=== PATIENT | female | born 1950 | race Caucasian/White ===

== ENCOUNTER 2016-12-22 02:30 | Inpatient (IN) ==
[2016-12-22] MEDS ORDERED: ZOFRAN IV ONE ×2 (02:41→03:49)
[2016-12-22] MEDS: LR 1,000 ML IV PRN ×2 (03:00→09:15)
[2016-12-22 03:05] LABS: MANUAL DIFF NEEDED? NO
[2016-12-22 03:08] LABS: BASO% 0.1 % (0.0-0.8); EOS# 0.03 X1000 (0.0-0.7); EOS% 0.2 % (0.0-10.0); HEMATOCRIT 36.2 % (37.0-47.0); IMM GRAN# 0.05 X1000 (0.0-0.04); IMM GRAN% 0.4 % (0.0-0.5); LYMPH% 16.5 % (20.5-51.1); MCH 28.4 PG (27-31); MCHC 35.9 g/dL (33-37); MONO# 0.54 X1000 (0.11-0.59); MPV 9.3 FL (7.4-10.4); NEUT% 78.8 % (42.2-75.2); PLT 449 X1000 (130-400); RBC 4.58 XMIL (4.2-5.4)
[2016-12-22] MEDS ORDERED: PHENERGAN IV ONE ×2 (03:11→05:03)
[2016-12-22] MEDS ORDERED: SODIUM CHLORIDE 0.9% INJ ONE ×2 (03:11→05:03)
[2016-12-22 03:47] LABS: CK PROFILE 50 U/L (24-173); LIPASE 22 U/L (13-60)
[2016-12-22] MEDS ORDERED: LABETALOL IV ONE (03:48)
[2016-12-22 04:07] LABS: AGAP 19; ALBUMIN 4.6 g/dL (3.5-5.0); ALKALINE PHOSPHATASE 99 U/L (32-104); BUN 10 mg/dL (8-22); CALCIUM 9.9 mg/dL (8.8-10.2); CHLORIDE 90 mmol/L (98-107); COSMO 258; GOT 15 U/L (10-30); GPT 9 U/L (10-36); POTASSIUM 3.4 mmol/L (3.5-5.1); SODIUM 128 mmol/L (136-145); TCO2 20 mmol/L (25-35); TOTAL PROTEIN 8.2 g/dL (6.3-8.3)
[2016-12-22 04:23] LABS: URINE CULTURE PL NEEDED? NO
[2016-12-22 04:46] LABS: BILIRUBIN URINE NEGATIVE (NEGATIVE); BLOOD URINE TRACE (NEGATIVE); CLARITY CLEAR (CLEAR); COLOR YELLOW; GLUCOSE URINE NEGATIVE (NEGATIVE); LEUKOCYTES URINE NEGATIVE (NEGATIVE); NITRITE URINE NEGATIVE (NEGATIVE); PH URINE 6.5; PROTEIN URINE 1+(30 mg/dL) mg/dL (NEGATIVE); SP GRAVITY URINE 1.015; URINE EPITHELIAL CELLS <10 /HPF (<10); URINE RBC <10 /HPF (<10); URINE WBC <10 /HPF (<10); UROBILINOGEN URINE NORMAL
[2016-12-22 04:47] LABS: URINE SOURCE CATH
[2016-12-22] MEDS ORDERED: ATIVAN IV ONE (05:03)
--- NOTE | 2016-12-22 06:01 | EKG Report ---
Test Performed on : 12/22/2016 03:15:33 AM Test Reason : pain Blood Pressure : / mmHG Vent. Rate : 085 BPM Atrial Rate : 085 BPM P-R Int : 112 ms QRS Dur : 070 ms QT Int : 348 ms P-R-T Axes : 044 053 036 degrees QTc Int : 414 ms Normal sinus rhythm. with sinus arrhythmia. Nonspecific ST abnormality Abnormal ECG When compared with ECG of 07-FEB-2016 17:43, No significant change was found Unconfirmed Result
--- NOTE | 2016-12-22 06:39 | Diag Imaging Result Doc PS360 ---
EXAM: HEAD W/O CONTRAST HISTORY: h/a vomiting TECHNIQUE: Dose reduction protocol COMPARISON: 01/17/2016 FINDINGS: No parenchymal hemorrhage. No epidural or subdural hematoma. No subarachnoid hemorrhage. No mass identified on this noncontrasted exam. No hydrocephalus. Mild microvascular ischemic changes. No sinus opacification. IMPRESSION: No hemorrhage. Mild microvascular ischemic changes. Electronically signed by Kane Campa 12/22/2016 6:37 AM
--- NOTE | 2016-12-22 07:29 | Diag Imaging Result Doc PS360 ---
EXAM: ABDOMEN FLAT/UPRIGHT HISTORY: vomiting TECHNIQUE: Portable upright and supine, three views COMPARISON: None. FINDINGS: No free air beneath the diaphragm. Mild scoliosis with mild degenerative changes. Cement is found within the lower lumbar vertebra. Prior to placement of the right hip. Old injury to the right pelvis. No bowel obstruction. No organomegaly. IMPRESSION: No acute abnormality. Electronically signed by Kane Campa 12/22/2016 7:27 AM
[2016-12-22] MEDS ORDERED: APRESOLINE IV PRN (11:20)
--- NOTE | 2016-12-22 11:51 | HISTORY AND PHYSICAL ---
PRIMARY CARE PHYSICIAN: Dr. Wright. CHIEF COMPLAINT: Nausea, vomiting and headache for the past 2 days that had progressively worsened. HISTORY OF PRESENTING ILLNESS: This is a 66-year-old female who presents to [facility] ER with complaints of nausea, vomiting and a headache for 2 days. Workup in the ER was essentially benign except she did have an elevation in her blood pressure at 186/98. She had a sodium level that was 128, and urine was clear. We checked a head CT that showed no acute abnormality. We did an abdomen x-ray that showed no acute abnormality. While in the emergency room she was given labetalol 20 mg IV x 1. She was given Ativan 1 mg IV x 1. She was given Zofran 4 mg IV on 2 different doses and Phenergan 25 mg IV x 2 separate doses. She still states that she has a headache and feels nauseated and has noted in her emesis basin at the bedside to have yellow bile in it, and that she is continuing to vomit so she is being admitted for further evaluation and treatment. PAST MEDICAL HISTORY: 1. Hypertension. 2. Sleep apnea. 3. Irritable bowel syndrome. 4. Chronic back pain. 5. Anxiety. 6. Depression. PAST SURGICAL HISTORY: Cholecystectomy and hysterectomy. FAMILY HISTORY: Noncontributory. SOCIAL HISTORY: She currently lives alone. Smokes 2-3 cigarettes a day and has done that for the past 3 years but has been an on and off smoker most of her life, she states. Denies any alcohol or illicit drug use. ALLERGIES: Penicillin. HOME MEDICATIONS: We will verify her dose of Xanax and hydrocodone. We will continue her Norvasc 10 mg p.o. daily and lisinopril 10 mg p.o. daily. LABORATORY DATA: Showed a white blood cell count of 13.36, hemoglobin of 13, hematocrit 36.2, platelets 449,000. Sodium 128, potassium 3.4, chloride 90, CO2 20, BUN of 10, creatinine of 0.5, glucose of 135, cardiac enzymes x 2 sets were negative. Lipase of 22. Urinalysis was negative. CT of the head showed no acute abnormality. No hemorrhage. Abdomen x-ray showed no acute abnormality. REVIEW OF SYSTEMS: She denied any fever, chills, blurred vision, dizziness. She is positive for a headache. She denied any chest pain, coughing, shortness of breath. She is positive for nausea, vomiting, some abdominal discomfort but not pain. Denied any diarrhea or burning or hurting with urination. PHYSICAL EXAMINATION: She had a temperature of 98.6 degrees, pulse 87, respirations 16, blood pressure 186/98. GENERAL: This is a 66-year-old female who is lying in the bed, and answers questions appropriately. HEENT: Normocephalic and atraumatic. Pupils are equal, round, reactive to light. Extraocular movements are intact. Oropharynx and nares are clear. NECK: Supple. LUNGS: Clear to auscultation bilaterally with equal lung expansion and chest wall movement. HEART: With regular rate and rhythm. No murmurs, rubs, or gallops. ABDOMEN: Soft, nontender, nondistended. Bowel sounds are present x 4 quadrants. EXTREMITIES: No clubbing, cyanosis, or edema. NEUROLOGICAL: The cranial nerves 2-12 are grossly intact. ASSESSMENT: 1. Nausea and vomiting. 2. Headache. 3. Hyponatremia. 4. Hypertension. PLAN: She is admitted to the medical unit at [place], placed on telemetry on a clear liquid diet. We will continue her home medication of Norvasc and lisinopril. We will also give her hydralazine 10 mg IV every 6 p.r.n. for a systolic blood pressure greater than 190, diastolic greater than 100. Give her Zofran 4 mg IV q.4 hours p.r.n., Protonix 40 mg IV q.24, and place on normal saline at 100 mL an hour and recheck a CBC and a BMP in the morning. Pt is a full code. Dictated by TARIK Samaniego for William Johnson MD cc: TARIK Samaniego MD Amit V. Vora, MD [facility]OSPITALJose J
[2016-12-22] MEDS: SODIUM CHLORIDE 0.9% INJ SCH (12:10)
[2016-12-22] MEDS: PROTONIX IV SCH (12:10)
[2016-12-22] MEDS: NS 1,000 ML IV SCH ×2 (12:10→22:21)
[2016-12-22] MEDS: ZOFRAN IV PRN ×2 (12:11→16:58)
[2016-12-22] MEDS: PRINIVIL PO SCH ×2 (12:11→16:58)
[2016-12-22] MEDS: NORVASC PO SCH ×2 (12:11→16:58)
[2016-12-22] MEDS: NORCO-10 PO SCH ×2 (16:58→20:46)
[2016-12-22] MEDS: XANAX PO SCH ×2 (16:58→20:47)
[2016-12-22] MEDS ORDERED: NORCO-10 PO SCH (21:00)
[2016-12-22] MEDS ORDERED: XANAX PO SCH (21:00)
[2016-12-23 06:13] LABS: MANUAL DIFF NEEDED? NO
[2016-12-23 06:18] LABS: BASO% 0.2 % (0.0-0.8); EOS% 0.8 % (0.0-10.0); HEMATOCRIT 38.8 % (37.0-47.0); HEMOGLOBIN 13.6 g/dL (12.0-16.0); IMM GRAN# 0.06 X1000 (0.0-0.04); IMM GRAN% 0.5 % (0.0-0.5); LYMPH% 23.4 % (20.5-51.1); MCH 27.7 PG (27-31); MCHC 35.1 g/dL (33-37); MONO# 1.35 X1000 (0.11-0.59); MONO% 10.2 % (1.7-9.3); MPV 9.6 FL (7.4-10.4); NEUT% 64.9 % (42.2-75.2); PLT 466 X1000 (130-400); RBC 4.91 XMIL (4.2-5.4)
[2016-12-23 06:48] LABS: AGAP 13; BUN 10 mg/dL (8-22); CALCIUM 9.2 mg/dL (8.8-10.2); CHLORIDE 95 mmol/L (98-107); COSMO 263; POTASSIUM 2.8 mmol/L (3.5-5.1); SODIUM 131 mmol/L (136-145); TCO2 23 mmol/L (25-35)
[2016-12-23] MEDS ORDERED: KLOR-CON PO ONE (07:02)
[2016-12-23] MEDS: NS 1,000 ML IV SCH (07:57)
--- NOTE | 2016-12-23 09:25 | PROGRESS NOTE ---
DATE: 12/23/2016 SUBJECTIVE: The patient states that she is still nauseated and still having some vomiting but overall thinks that she is feeling a little bit better. Denies any chest pain or palpitations. Denies blood in her emesis or her stool. OBJECTIVE: Vital Signs: Temperature 98, pulse 102-118, respiratory rate 16, BP 114/63 to 137/89 which is improved from last night's 87/58, saturation is 99% on room air. General: Patient is awake, alert. She is currently in no respiratory distress. Pleasant to talk with. Neck: Supple. Cardiovascular: Tachycardia. No murmurs. Chest: Clear and unlabored. Abdomen: Soft. Extremities: Moves all extremities. Neurologic: No changes. ASSESSMENT: 1. Nausea and vomiting, likely viral gastroenteritis. 2. Headache, seems to be improving. 3. Hyponatremia, improving. 4. Hypokalemia. We will replace. 5. Hypotension, has improved. Patient's blood pressures are starting to increase. This was likely secondary to pain medication last night. PLAN: We will continue patient's medications today. We will continue Zofran and IV fluids. Hopefully home in 1-2 days. cc: William Johnson MD
[2016-12-23] MEDS: NORVASC PO SCH (09:39)
[2016-12-23] MEDS: PRINIVIL PO SCH (09:39)
[2016-12-23] MEDS: XANAX PO SCH (09:39)
[2016-12-23] MEDS: NORCO-10 PO SCH (09:40)
[2016-12-23] MEDS: SODIUM CHLORIDE 0.9% INJ SCH (11:20)
[2016-12-23] MEDS: PROTONIX IV SCH (11:20)
[2016-12-23 15:56] VITALS: BP 105/59
--- NOTE | 2017-01-01 10:39 | DISCHARGE SUMMARY ---
ADMISSION DATE: 12/22/2016 DISCHARGE DATE: 12/23/2016 DIAGNOSES: 1. Nausea and vomiting, likely viral gastroenteritis. 2. Headache, improved. 3. Hyponatremia. 4. Hypokalemia. 5. Hypotension. DIAGNOSTICS: 1. Abdominal x-ray revealed no acute abnormality. 2. CT of the head revealed no hemorrhage. Mild microvascular ischemic changes. HOSPITAL COURSE: Ms. Peters presented to the emergency room complaining of nausea, vomiting, and headache for 2 days prior, that had progressively gotten worse. CT of the head was negative. She did have increased vomiting in the emergency room. Therefore, she was at admitted for hydration. This did resolve. She was hypotensive on admission, most likely secondary to dehydration. After the fluids were administered, this did resolve. We did replete potassium and sodium, although the patient left AMA before repeat labs could be obtained. Apparently the patient became angry, demanded to leave AMA. According to the chart, her IV was discontinued prior to her leaving. The patient walked out in a hospital gown with no belongings per documentation. Dictated by TARIK Box for William Johnson MD cc: TARIK Box MD
--- NOTE | 2017-01-14 06:22 | PROVIDER DOCUMENTATION ---
This chart was entered by Annia Bishop Scribe, acting as scribe for Everett Young MD. HPI-General Adult - General Source: patient <Greg Mendoza I - Last Filed: 12/22/16 07:27> - General Source: patient - History of Present Illness -Gen Adult Nature of Presenting Problems: Pt is a 66 year old female who came to the ED with a cc of N/V for two days. Location of Pain/Injury: reports: none Pain Radiation: reports: no radiation Quality of Pain: reports: none Onset/Duration: reports: 2 days ago Timing: reports: still present Associated Symptoms: reports: nausea, vomiting Similar Symptoms Previously?: No Recently seen or treated by another doctor?: No <Everett Young - Last Filed: 01/14/17 06:22> - General Chief Complaint: Nausea/Vomiting Stated Complaint: nausea vomiting and headache Time Seen by Provider: 12/22/16 02:37 Allergies/Adverse Reactions: Patient Allergies Allergy/AdvReac Type Severity Reaction Status Date / Time Penicillins Allergy Severe ANAPHYLAXIS Verified 12/22/16 02:35 Home Medications: Home Medication List Medication Instructions Recorded Confirmed Last Taken Type Amlodipine [Norvasc] 10 mg PO DAILY 01/28/16 12/22/16 01/28/16 08:59 History Lisinopril 10 mg PO DAILY 02/07/16 12/22/16 Unknown History Alprazolam [Alprazolam] 1 mg PO BID 12/22/16 12/22/16 Unknown History Hydrocodone/APAP 10 mg/325 mg 1 each PO BID 12/22/16 12/22/16 Unknown History [[place]-10] Review of Systems - Adult - REVIEW OF SYSTEMS - ADULT Constitutional: reports: no symptoms reported <RejiFitzGreg I - Last Filed: 12/22/16 07:27> - REVIEW OF SYSTEMS - ADULT Constitutional: denies: chills, fever Eyes: reports: no symptoms reported Ears, Nose, Mouth & Throat: reports: no symptoms reported Cardiovascular: reports: no symptoms reported Respiratory: reports: no symptoms reported Gastrointestinal: reports: nausea, vomiting. denies: abdominal pain, diarrhea, poor appetite Genitourinary: denies: discharge, urgency Musculoskeletal: reports: no symptoms reported Integumentary: reports: no symptoms reported Neurological: denies: seizure, tremors Psychiatric: reports: no symptoms reported Endocrine: reports: no symptoms reported Hematologic/Lymphatic: reports: no symptoms reported Allergic/Immunologic: reports: no symptoms reported All Other Systems: Reviewed and Negative <Everett Young - Last Filed: 01/14/17 06:22> Past History - Adult - PAST MEDICAL HISTORY-ADULT Review of Records: reports: Old Records Reviewed, Nursing Assessment Review, Medications Reviewed, Social history reviewed & non-contributory. <Greg Mendoza I - Last Filed: 12/22/16 07:27> - PAST MEDICAL HISTORY-ADULT Review of Records: reports: Nursing Assessment Review Major Childhood Illnesses: reports: denies history Cardiovascular: reports: HTN Respiratory: reports: sleep apnea Gastrointestinal: reports: denies history Obstetrical/Gynecological: reports: denies history Genitourinary: reports: denies history Musculoskeletal: reports: denies history Neurological: reports: headaches/migraines Psychiatric: reports: anxiety, depression, suicide attempt Endocrine/Immune: reports: denies history Other Conditions: reports: denies history - PRIOR SURGERIES/PROCEDURES Surgical/Procedure History: reports: cholecystectomy, hysterectomy - PRIOR HOSPITALIZATIONS Prior Hospitalizations: reports: psychiatric or rehab (once) - IMMUNIZATION STATUS Childhood Immunizations: UTD Flu Vaccine: UTD - FAMILY HISTORY Family History: reviewed, not pertinent <Everett Young - Last Filed: 01/14/17 06:22> Physical Exam-General - CONSTITUTIONAL General Appearance: appears well <Greg Mendoza I - Last Filed: 12/22/16 07:27> - PHYSICAL EXAM-ADULT Initial Vital Signs Reviewed: Yes - CONSTITUTIONAL General Appearance: alert, mild distress - EYES Eyes: PERRL/EOMI, pink conjunctivae - HEAD, EARS, NOSE, MOUTH & THROAT HENMT: normocephalic/atraumatic, moist mucous membranes - NECK Neck: non-tender, full range of motion - RESPIRATORY Respiratory: chest non-tender, lungs clear - CARDIOVASCULAR Cardiovascular: tachycardia, irregularly irregular - GASTROINTESTINAL (ABDOMEN) Abdominal Exam: non tender, other (hyperactive bowel sounds) - MUSCULOSKELETAL Back Exam: normal inspection, no CVA tenderness Extremity: normal range of motion, non-tender - SKIN Integumentary: normal color, normal turgor - NEUROLOGIC Neurologic: grossly normal - PSYCHIATRIC Psych/Mental Status: normal mood/affect, normal thought content, normal thought process, oriented x 3 <Everett Young - Last Filed: 01/14/17 06:22> Progress - PLAN OF CARE/RESULTS Progress/Plan/Lab Results: Vital Signs - 8 hr 12/22/16 02:32 12/22/16 02:37 12/22/16 02:42 Temperature 98.6 F Pulse Rate 95 H 87 Respiratory Rate 16 16 Blood Pressure 143/91 186/98 O2 Sat by Pulse Oximetry 100 100 12/22/16 03:59 12/22/16 04:03 12/22/16 04:07 Temperature Pulse Rate 90 83 87 Respiratory Rate Blood Pressure 186/78 181/83 176/85 O2 Sat by Pulse Oximetry 12/22/16 04:12 12/22/16 05:25 12/22/16 06:10 Temperature Pulse Rate 82 96 H 86 Respiratory Rate 21 24 Blood Pressure 168/78 160/74 167/91 O2 Sat by Pulse Oximetry 99 97 Laboratory Results - last 24 hr 12/22/16 12/22/16 12/22/16 03:00 03:00 03:00 WBC 13.36 H RBC 4.58 Hgb 13.0 Hct 36.2 L MCV 79.0 L MCH 28.4 MCHC 35.9 RDW Std Deviation 13.9 Plt Count 449 H MPV 9.3 Immature Gran % (Auto) 0.4 Neut % (Auto) 78.8 H Lymph % (Auto) 16.5 L Mcdowell % (Auto) 4.0 Eos % (Auto) 0.2 Baso % (Auto) 0.1 Immature Gran # (Auto) 0.05 H Neut # (Auto) 10.52 H Lymph # (Auto) 2.20 Mcdowell # (Auto) 0.54 Eos # (Auto) 0.03 Baso # (Auto) 0.02 Sodium 128 L Potassium 3.4 L Chloride 90 L Carbon Dioxide 20 L Anion Gap 19 BUN 10 Creatinine 0.5 Estimated GFR/1.73 m2 > 60 BUN/Creatinine Ratio 20 Glucose 135 H Calculated Osmolality 258 Calcium 9.9 Total Bilirubin 0.40 AST 15 ALT 9 L Alkaline Phosphatase 99 Creatine Kinase Troponin T < 0.010 Total Protein 8.2 Albumin 4.6 Globulin 4.0 Albumin/Globulin Ratio 1.0 Lipase Urine Source Urine Color Urine Clarity Urine pH Ur Specific [place] Urine Protein Urine Ketones Urine Blood Urine Nitrite Urine Bilirubin Urine Urobilinogen Urine Microscopic RBC Urine WBC Urine Microscopic WBC Ur Epithelial Cells Urine Bacteria Urine Glucose 12/22/16 12/22/16 12/22/16 03:00 04:10 05:07 WBC RBC Hgb Hct MCV MCH MCHC RDW Std Deviation Plt Count MPV Immature Gran % (Auto) Neut % (Auto) Lymph % (Auto) Mcdowell % (Auto) Eos % (Auto) Baso % (Auto) Immature Gran # (Auto) Neut # (Auto) Lymph # (Auto) Mcdowell # (Auto) Eos # (Auto) Baso # (Auto) Sodium Potassium Chloride Carbon Dioxide Anion Gap BUN Creatinine Estimated GFR/1.73 m2 BUN/Creatinine Ratio Glucose Calculated Osmolality Calcium Total Bilirubin AST ALT Alkaline Phosphatase Creatine Kinase 50 49 Troponin T Total Protein Albumin Globulin Albumin/Globulin Ratio Lipase 22 Urine Source CATH Urine Color YELLOW Urine Clarity CLEAR Urine pH 6.5 Ur Specific [place] 1.015 Urine Protein 1+(30 mg/dL) A Urine Ketones 2+(Moderate) A Urine Blood TRACE Urine Nitrite NEGATIVE Urine Bilirubin NEGATIVE Urine Urobilinogen NORMAL Urine Microscopic RBC <10 Urine WBC NEGATIVE Urine Microscopic WBC <10 Ur Epithelial Cells <10 Urine Bacteria NEGATIVE Urine Glucose NEGATIVE 12/22/16 05:07 WBC RBC Hgb Hct MCV MCH MCHC RDW Std Deviation Plt Count MPV Immature Gran % (Auto) Neut % (Auto) Lymph % (Auto) Mcdowell % (Auto) Eos % (Auto) Baso % (Auto) Immature Gran # (Auto) Neut # (Auto) Lymph # (Auto) Mcdowell # (Auto) Eos # (Auto) Baso # (Auto) Sodium Potassium Chloride Carbon Dioxide Anion Gap BUN Creatinine Estimated GFR/1.73 m2 BUN/Creatinine Ratio Glucose Calculated Osmolality Calcium Total Bilirubin AST ALT Alkaline Phosphatase Creatine Kinase Troponin T < 0.010 Total Protein Albumin Globulin Albumin/Globulin Ratio Lipase Urine Source Urine Color Urine Clarity Urine pH Ur Specific [place] Urine Protein Urine Ketones Urine Blood Urine Nitrite Urine Bilirubin Urine Urobilinogen Urine Microscopic RBC Urine WBC Urine Microscopic WBC Ur Epithelial Cells Urine Bacteria Urine Glucose Orders Category Date Time Status ABDOMEN FLAT/UPRIGHT [RAD] Stat Exams 12/22/16 03:49 Taken HEAD W/O CONTRAST [CT] Stat Exams 12/22/16 05:04 Completed CBC WITH DIFF [HEME] Stat Lab 12/22/16 03:00 Completed CK PROFILE [SP CHEM] Stat Lab 12/22/16 03:00 Completed CK PROFILE [SP CHEM] Stat Lab 12/22/16 05:07 Completed COMPREHENSIVE METABOLIC PANEL [CHEM] Stat Lab 12/22/16 03:00 Completed LIPASE [CHEM] Stat Lab 12/22/16 03:00 Completed TROPONIN T Stat Lab 12/22/16 03:00 Completed TROPONIN T Stat Lab 12/22/16 05:[address] W/POSS RFLX CULT [URINALYSIS] Stat Lab 12/22/16 04:10 Completed Labetalol Med 12/22/16 03:48 Discontinued 20 mg IV NOW ONE Lactated Ringers Inj [Lr] 1,000 ml Med 12/22/16 02:41 Active IV 500 mls/hr Lorazepam [Ativan] Med 12/22/16 05:03 Discontinued 1 mg IV NOW ONE Ondansetron [Zofran] Med 12/22/16 02:41 Discontinued 4 mg IV NOW ONE Ondansetron [Zofran] Med 12/22/16 03:49 Discontinued 4 mg IV NOW ONE Promethazine [Phenergan] Med 12/22/16 03:11 Discontinued 25 mg IV NOW ONE Promethazine [Phenergan] Med 12/22/16 05:03 Discontinued 25 mg IV NOW ONE Sodium Chloride 0.9% Med 12/22/16 03:11 Discontinued 10 ml INJ NOW ONE Sodium Chloride 0.9% Med 12/22/16 05:03 Discontinued 10 ml INJ NOW ONE EKG [EKG] Stat Ther 12/22/16 02:46 Draft Result Diagrams: 12/22/16 03:00 12/22/16 03:00 <Greg Mendoza I - Last Filed: 12/22/16 07:27> - PLAN OF CARE/RESULTS Progress/Plan/Lab Results: Vital Signs - 8 hr 12/22/16 02:32 12/22/16 02:37 Temperature 98.6 F Pulse Rate 95 H Respiratory Rate 16 Blood Pressure 143/91 O2 Sat by Pulse Oximetry 100 Orders Category Date Time Status Lactated Ringers Inj [Lr] 1,000 ml Med 12/22/16 02:41 Ordered IV 500 mls/hr Ondansetron [Zofran] Med 12/22/16 02:41 Once 4 mg IV NOW ONE Result Diagrams: 12/23/16 05:50 12/23/16 05:50 - EKG 1 Time of EKG reading by physician:: 03:15 EKG Read and Signed by:: Everett Young EKG Interpretation (*Must complete 3 of following elements*): Abnormal Rate: 85 Rhythm: nsr [employer]: normal QRS: normal [place] Interval: normal ST Wave: non-specific ST changes <Everett Young - Last Filed: 01/14/17 06:22> Departure - Departure Date of Disposition Decision: 12/22/16 Time of Disposition Decision: 07:27 Certified Medical Emergency: Emergent - Critical Care Note This patient required my direct & personal management of CC.: No <Greg Mendoza I - Last Filed: 12/22/16 07:27> - Departure Date of Disposition Decision: 12/22/16 Time of Disposition Decision: 07:00 Certified Medical Emergency: Emergent - Critical Care Note This patient required my direct & personal management of CC.: No <Everett Young - Last Filed: 01/14/17 06:22> - Departure DIAGNOSIS: Intractable nausea and vomiting Qualifiers: Vomiting type: cyclical vomiting Qualified Code(s): G43.A1 - Cyclical vomiting , intractable Intractable headache Qualifiers: Headache type: tension-type Headache chronicity pattern: acute headache Qualified Code(s): G44.201 - Tension-type headache, unspecified, intractable Disposition: ADMITTED INPATIENT 09 Condition: Stable Attestation - Physician/ ROEBRT Attestation The physician spent face to face time with patient:: Yes Advanced Practice Provider documentation review:: The physician spent face to face time with this patient and agrees with all MLP documentation, treatment, and medical decision making by the MLP. See provider notes for further information. <Greg Mendoza I - Last Filed: 12/22/16 07:27> This chart was documented by the indicated scribe, (Annia Bishop Scribe) and accurately reflects the services I performed and decisions made by Hector spear Kurt M., MD, as attested by the provider's signature.
== END 2016-12-23 17:40 | disposition left against medical advice (07) ==
LOC: P.ED 02:30 → P.MEDSURG 07:54
PROVIDERS: ATTEND Family Medicine